=== PATIENT | male | born 1970 | race Caucasian/White ===

== ENCOUNTER 2020-04-18 20:17 | Emergency (ER) | payer BC ==
[~2020-04-18] VITALS: Ht 172.7 cm; Wt 115.7 kg
[~2020-04-18 20:17] MED LIST: IBUP800T26 PO; MTF500T PO; OXYC-272 PO
--- OUTSIDE RECORDS SUMMARY | 2020-04-18 20:22 | XMS REPORT ---
Author Author Alpesh MALAVE Organization [facility] Address [address] [place] [address] Care Team Providers Care House Painting Instructor Name Role Phone SATURNINO MALAVE Unavailable PROBLEMS Type Condition ICD9-CM Code [id number] Code Onset Dates Condition S tatus SNOMED Code Problem Chronic sinusitis, unspecified J32.9 Active [id number] ALLERGIES No Information ENCOUNTERS Encounter Location Date Diagnosis [facility] [address] [address] Dec, Chronic sinusitis, unspecifi ed J32.9 and Other viral agents as the cause of diseases classified elsewhere B97.89 [facility] [address] [address] Aug, Hordeolum externum of right upper eyelid H00.011 and Elevated blood pressure reading R03.0 [facility] [address] [place] [phone] Jul, Hordeolum externum of right lower eyelid H00.012 [facility] [place] [address] [address] Jul, Upper respiratory tract infe ction, unspecified type J06.9 and Cough productive of purulent sputum R05 [facility] [address] [place] [id number] [place] [phone] Nov, Allergic rhinitis J30.9 [facility] [address] [address] Jan, [facility] [address] [place] [id number] [address] [place] [phone] Jan, [facility] [address] [place] [address] [place] [phone] Oct, [facility] [address] [facility] [id number] [address] [place] [phone] Oct, [facility] [address] [facility] [id number] [address] [place] [phone] Sep, [facility] [address] [facility] [id number] [address] [place] [phone] Sep, IMMUNIZATIONS No Known Immunizations SOCIAL HISTORY Never Assessed REASON FOR VISIT PLAN OF CARE VITAL SIGNS Height 68 in 2013-10-16 Weight 256 lbs 2013-10-16 Temperature 97.4 degrees Fahrenheit 2013-10-16 Heart Rate 80 bpm 2013-10-16 Respiratory Rate 20 2013-10-16 Blood pressure systolic 130 mmHg 2013-10-16 Blood pressure diastolic 78 mmHg 2013-10-16 MEDICATIONS No Known Medications RESULTS No Results PROCEDURES Procedure Date Ordered Result Body Site GLYCATED HEMOGLOBIN TEST Oct 16, 2013 INSTRUCTIONS MEDICATIONS ADMINISTERED No Known Medications MEDICAL (GENERAL) HISTORY Type Description Date Medical History Diabetes mellitus without me ntion of complication, type II or unspecified type, uncontrolled Medical History Diabetes mellitus without me ntion of complication, type II or unspecified type, uncontrolled Surgical History shoulder arthroscopy
--- OUTSIDE RECORDS SUMMARY | 2020-04-18 20:23 | XMS REPORT ---
Author Author Alpesh Cole Doctor Organization [facility] Address Unknown Phone Unavailable Care Team Providers Care Heddler Name Role Phone Migration, Doctor Unavailable Unavailable PROBLEMS Type Condition ICD9-CM Code [id number] Code Onset Dates Condition S tatus SNOMED Code Problem Diabetes mellitus without me ntion of complication, type II or unspecified type, uncontrolled 250.02 Active [id number] ALLERGIES No Information ENCOUNTERS Encounter Location Date Diagnosis [facility] [address] [place] [phone] Jul, Upper respiratory tract infe ction, unspecified type J06.9 and Cough productive of purulent sputum R05 [facility] [address] [place] [phone] Nov, Allergic rhinitis J30.9 [facility] [address] [place] [id number] [place] [phone] Jan, [facility] [address] [place] [phone] Jan, [facility] [address] [place] [phone] Oct, [facility] [address] [place] [phone] Oct, [facility] [address] [place] [id number] [place] [phone] Sep, [facility] [address] [place] [phone] Sep, IMMUNIZATIONS No Known Immunizations SOCIAL HISTORY Never Assessed REASON FOR VISIT EMR[facility] PLAN OF CARE VITAL SIGNS MEDICATIONS No Known Medications RESULTS No Results PROCEDURES No Known procedures INSTRUCTIONS MEDICATIONS ADMINISTERED No Known Medications MEDICAL (GENERAL) HISTORY Type Description Date Surgical History shoulder arthroscopy
--- OUTSIDE RECORDS SUMMARY | 2020-04-18 20:23 | XMS REPORT ---
Author Author Alpesh Cole Doctor Organization [facility] Address Unknown Phone Unavailable Care Team Providers Care Manager Behavioral Name Role Phone Migration, Doctor Unavailable Unavailable PROBLEMS Type Condition ICD9-CM Code [id number] Code Onset Dates Condition S tatus SNOMED Code Problem Diabetes mellitus without me ntion of complication, type II or unspecified type, uncontrolled 250.02 Active [id number] ALLERGIES No Information ENCOUNTERS Encounter Location Date Diagnosis [facility] [address] [place] [id number] [place] [phone] Jul, Upper respiratory tract infe ction, unspecified type J06.9 and Cough productive of purulent sputum R05 [facility] [address] [place] [id number] [place] [phone] Nov, Allergic rhinitis J30.9 [facility] [address] [place] [id number] [place] [phone] Jan, [facility] [address] [place] [id number] [place] [phone] Jan, [facility] [address] [place] [id number] [place] [phone] Oct, [facility] [address] [place] [id number] [place] [phone] Oct, [facility] [address] [place] [phone] Sep, [facility] [address] [place] [id number] [place] [phone] Sep, IMMUNIZATIONS No Known Immunizations SOCIAL HISTORY Never Assessed REASON FOR VISIT EMR-[facility] PLAN OF CARE VITAL SIGNS MEDICATIONS Medication Instructions Dosage Frequency Start Date End Date Duration S tatus metformin 500 mg take 1 tablet by Ora l route 2 times per day with morning and evening meals voucher 1st fill only Oct, Active Multi-Day 1 Tablet by Oral route 1 time per day Sep, Active Aspirin 81 mg 1 Tablet by Oral route 1 time per day 2013 Active RESULTS No Results PROCEDURES No Known procedures INSTRUCTIONS MEDICATIONS ADMINISTERED No Known Medications MEDICAL (GENERAL) HISTORY Type Description Date Surgical History shoulder arthroscopy
--- OUTSIDE RECORDS SUMMARY | 2020-04-18 20:23 | XMS REPORT ---
Author Alpesh Flanagan [facility] e[employer] Address Unknown Phone Unavailable Care Team Providers Care Surveyor Geodetic Name Role Phone ARCHIE CORDOVA CP Unavailable Allergies, Adverse Reactions, Alerts Substance Reaction Event Type N.K.D.A. Info Not Available Non Drug Allergy Problems Problem Type Condition Code Onset Dates Condition Statu s Assessment Upper respiratory tract infection, unspecified type J0 6.9 Active Problem Diabetes mellitus without me ntion of complication, type II or unspecified type, uncontrolled 250.02 Active Medications Medication Code System Code Instructions Start Date End Date Status Dosage Multi-Day [facility] [address]-18 Oct 16, 2013 1 T ablet by Oral route 1 time per day Azithromycin [facility] [address]-56 250 MG Orally Once a day JulAug 11, 2016 2 tablets on the first day, then 1 tablet daily for 4 days DayQuil Multi-Symptom NDC 0 no t defined Procedures Procedure Coding System Code Date Office Visit, Est Pt., Level 3 CPT-[address] Vital Signs Date/Time: Aug 06, 2016 Cardiac Monitoring Heart Rate 76 bpm Weight 250 lbs Height 68 in BMI 38.01 Index Blood Pressure Diastolic 76 mmHg Blood Pressure Systolic 110 mmHg Results No Known Results Summary Purpose eClinicalWorks Submission
--- OUTSIDE RECORDS SUMMARY | 2020-04-18 20:23 | XMS REPORT | Continuity of Care Document ---
Author Organization Unknown Address Unknown Phone Unavailable Allergies Active Description Code Type Severity Reaction Onset Reported/Identified Relationship to Patient Clinical Status Yes No Known Drug Allergies [id number] Drug Allergy Unknown N/A 09/04/2013 Medications There is no data. Problems Date Dx Coded Attending Type Code Diagnosis Diagnosed By 10/16/2013 SATURNINO MALAVE APRN 250.02 DIABETES II UNCONTROLLED (UNCOMPLICATED) 10/16/2013 SATURNINO MALAVE APRN 250.02 DIABETES II UNCONTROLLED (UNCOMPLICATED) Procedures Code [place] [address] A1C (IN-HOUSE) 10/16/2013 Results There is no data. Encounters ACCT No. Visit Date/Time Discharge Status Pt. Type Provider Facility Loc./Unit Complaint [id number] 11/13/2013 13:59:00 11/13/2013 23:59: 59 CLS Outpatient SATURNINO MALAVE APRN [id number] 10/16/2013 14:00:00 10/16/2013 23:59: 59 CLS Outpatient SATURNINO MALAVE APRN [id number] 11/16/2013 21:15:00 014 23:27:00 DIS Emergency [id number] 09/10/2013 06:55:00 013 16:55:00 DIS Outpatient [id number] 09/04/2013 10:18:00 013 23:59:59 CLS Outpatient [id number] 07/04/2013 09:54:00 013 23:59:59 CLS Outpatient [id number] 06/28/2013 13:23:00 013 23:59:59 CLS Outpatient [id number] 04/18/2020 20:18:[address] Emergency EASTON BURTON DO [facility] ER DIZZINESS [id number] 12/19/2019 18:00:00 12/19/2019 23:59:5 9 CLS Outpatient JE[facility]
--- OUTSIDE RECORDS SUMMARY | 2020-04-18 20:23 | XMS REPORT ---
Author Author Alpesh MALAVE Organization [facility] Address [address] [place] [address] Care Team Providers Care Rn Ent Name Role Phone SATURNINO MALAVE Unavailable PROBLEMS Type Condition ICD9-CM Code DOA18-PF Code Onset Dates Condition S tatus SNOMED Code Problem Chronic sinusitis, unspecified J32.9 Active [id number] ALLERGIES No Information ENCOUNTERS Encounter Location Date Diagnosis [facility] [address] [address] Dec, Chronic sinusitis, unspecifi ed J32.9 and Other viral agents as the cause of diseases classified elsewhere B97.89 [facility] [address] [place] [phone] Aug, Hordeolum externum of right upper eyelid H00.011 and Elevated blood pressure reading R03.0 [facility] [address] [address] Jul, Hordeolum externum of right lower eyelid H00.012 [facility] [address] [address] Jul, Upper respiratory tract infe ction, unspecified type J06.9 and Cough productive of purulent sputum R05 [facility] [address] [address] Nov, Allergic rhinitis J30.9 [facility] [address] [place] [phone] Jan, [facility] [address] [address] Jan, [address] [address] Oct, [facility] [address] [id number] [place] [address] Oct, [facility] [address] [id number] [place] [address] Sep, [facility] [address] [id number] [place] [address] Sep, IMMUNIZATIONS No Known Immunizations SOCIAL HISTORY Never Assessed REASON FOR VISIT PLAN OF CARE VITAL SIGNS Height 68 in 2013-11-13 Weight 255 lbs 2013-11-13 Temperature 98 degrees Fahrenheit 2013-11-13 Heart Rate 80 bpm 2013-11-13 Respiratory Rate 20 2013-11-13 Blood pressure systolic 128 mmHg 2013-11-13 Blood pressure diastolic 80 mmHg 2013-11-13 MEDICATIONS No Known Medications RESULTS No Results [...]
[2020-04-18 20:43] VITALS: BP_SYST 119; BP_SYST 132; BP_SYST 138; BP_DIAS 83; BP_DIAS 86; BP_DIAS 90
[2020-04-18] MEDS ORDERED: LACTATED RINGERS 1,000 ML IV ONE (20:52)
[2020-04-18] MEDS ORDERED: NS IV 1000 ML 1,000 ML IV SCH (20:53)
[2020-04-18 21:02] LABS: BASOPHILS % (AUTO) 0 % (0-10); EOSINOPHILS # (AUTO) 0.2 10^3/uL (0.0-0.3); EOSINOPHILS % (AUTO) 3 % (0-10); HEMATOCRIT 41 % (40-54); HEMOGLOBIN 14.5 G/DL (13.3-17.7); LYMPHOCYTES # (AUTO) 1.8 X 10^3 (1.0-4.0); LYMPHOCYTES % (AUTO) 33 % (12-44); MEAN CORPUSCULAR HEMOGLOBIN 30 PG (25-34); MEAN CORPUSCULAR HGB CONC 35 G/DL (32-36); MEAN CORPUSCULAR VOLUME 85 FL (80-99); MEAN PLATELET VOLUME 13.4 FL (7.4-10.4); MONOCYTES # (AUTO) 0.4 X 10^3 (0.0-1.0); MONOCYTES % (AUTO) 6 % (0-12); NEUTROPHILS # (AUTO) 3.2 X 10^3 (1.8-7.8); NEUTROPHILS % (AUTO) 58 % (42-75); PLATELET COUNT 151 10^3/uL (130-400); RED CELL DISTRIBUTION WIDTH 13.2 % (10.0-14.5); WHITE BLOOD COUNT 5.6 10^3/uL (4.3-11.0)
[2020-04-18 21:04] LABS: CHLORIDE 102 MMOL/L (98-107); SODIUM 136 MMOL/L (135-145)
[2020-04-18 21:05] LABS: CALCIUM 8.8 MG/DL (8.5-10.1)
[2020-04-18 21:07] LABS: GLUCOSE 395 MG/DL (70-105); TOTAL PROTEIN 6.7 GM/DL (6.4-8.2)
[2020-04-18 21:08] LABS: BILIRUBIN,TOTAL 0.4 MG/DL (0.1-1.0); CARBON DIOXIDE 21 MMOL/L (21-32)
[2020-04-18 21:10] LABS: ALKALINE PHOSPHATASE 80 U/L (40-136)
[2020-04-18 21:11] LABS: CREATININE SERUM 1.05 MG/DL (0.60-1.30); GFR ESTIMATED > 60
[2020-04-18 21:12] LABS: BUN/CREATININE RATIO 16
[2020-04-18 21:13] LABS: ALANINE AMINOTRANSFERASE 37 U/L (0-55); INR 0.9 (0.8-1.4); PROTHROMBIN TIME PATIENT 12.8 SEC (12.2-14.7)
[2020-04-18 21:14] LABS: CREATINE KINASE 209 U/L (30-200)
[2020-04-18 21:17] LABS: BILIRUBIN,URINE NEGATIVE (NEGATIVE); CLARITY,URINE CLEAR; COLOR,URINE YELLOW; GLUCOSE, URINE (UA) 3+ (NEGATIVE); KETONES,URINE TRACE (NEGATIVE); LEUKOCYTE ESTERASE ,URINE NEGATIVE (NEGATIVE); NITRITE,URINE NEGATIVE (NEGATIVE); PH,URINE 5.5 (5-9); PROTEIN,URINE NEGATIVE (NEGATIVE)
[2020-04-18 21:34] LABS: BACTERIA,URINE NEGATIVE /HPF; SQUAMOUS EPITHELIAL CELL,UR 0-2 /HPF
[2020-04-18 21:38] LABS: CREATINE KINASE MB 2.8 NG/ML (<6.6)
[2020-04-18 21:45] LABS: AMPHETAMINE SCREEN, URINE NEGATIVE (NEGATIVE); BARBITURATE SCREEN URINE NEGATIVE (NEGATIVE); BENZODIAZEPINES SCREEN URINE NEGATIVE (NEGATIVE); CANNABINOID SCREEN, URINE NEGATIVE (NEGATIVE); COCAINE SCREEN URINE NEGATIVE (NEGATIVE); METHADONE STAT NEGATIVE (NEGATIVE); METHAMPHETAMINE SCREEN URINE S NEGATIVE (NEGATIVE); OPIATE SCREEN URINE NEGATIVE (NEGATIVE); OXYCODONE STAT NEGATIVE (NEGATIVE); PROPOXYPHENE STAT NEGATIVE (NEGATIVE); TRICYCLIC ANTIDEPRESSANTS SCRE NEGATIVE (NEGATIVE)
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
[2020-04-18 22:28] VITALS: BP 130/74
--- NOTE | 2020-04-19 05:52 | Diagnostic Imaging Report ---
EXAMINATION: CT head without contrast. TECHNIQUE: Multiple contiguous axial images were obtained through the brain without the use of intravenous contrast. All CT scans use one or more of the following dose optimizing techniques: automated exposure control, MA and/or KvP adjustment based on a patient size and exam type, or iterative reconstruction. HISTORY: Dizziness. COMPARISON: 11/16/2013. FINDINGS: No large acute territorial ischemia, mass, or hemorrhage. No midline shift or mass effect. The ventricles, cortical sulci, and basilar cisterns are patent and unremarkable. The orbits are normal. Paranasal sinuses are normal. Mastoid air cells are clear. No soft tissue abnormality is seen. No osseus lesions or fractures are seen. IMPRESSION: 1. No large acute territorial ischemia, mass, or hemorrhage. Agree with overnight report. Dictated by: Dictated on workstation # [id number]
--- NOTE | 2020-04-19 05:52 | Diagnostic Imaging Report ---
EXAMINATION: Chest 2 view HISTORY: Dizziness. COMPARISON: None available. FINDINGS: The lung volumes are normal. No focal consolidation is seen. No large pleural effusion or pneumothorax is seen. The cardiomediastinal silhouette is normal in size and contour. No acute osseous abnormality is seen. IMPRESSION: 1. No acute pleuroparenchymal process. Dictated by: Dictated on workstation # [id number]
== END 2020-04-18 22:28 | disposition home or self-care (01) ==
LOC: EDUNIT# 20:17 → ER 20:18
DX: E11.65 Type 2 diabetes mellitus with hyperglycemia (principal); Z79.84 Long term (current) use of oral hypoglycemic drugs
CPT/HCPCS: 70450; 71046; 80053; 80306; 81000; 82550; 82553; 82962; 83036; 83735; 84484; 85025; 85610; 85730; 93005; 93041; 99284; G0480; 36415; 80320

== ENCOUNTER → 2020-08-14 | Outpatient (CLI) | payer BC | LOC: WOUNDCARE 13:43 | PROVIDERS: ATTEND Surgery | DX: L84 Corns and callosities (principal); E11.42 Type 2 diabetes mellitus with diabetic polyneuropathy; E11.65 Type 2 diabetes mellitus with hyperglycemia; I96 Gangrene, not elsewhere classified | CPT/HCPCS: 99213 ==

== ENCOUNTER → 2020-08-18 | Outpatient (CLI) | payer BC | LOC: WOUNDCARE 10:48 | PROVIDERS: ATTEND Surgery | DX: L84 Corns and callosities (principal); E11.42 Type 2 diabetes mellitus with diabetic polyneuropathy; E11.65 Type 2 diabetes mellitus with hyperglycemia | CPT/HCPCS: 99212 ==

== ENCOUNTER 2021-05-20 14:26 | Emergency (ER) | payer BC ==
[~2021-05-20] VITALS: Ht 172.7 cm; Wt 115.7 kg
--- NOTE | 2021-05-20 15:32 | ED General ---
General Stated Complaint: HEADACHE;COUGH;SINUS Source of Information: Patient Exam Limitations: No Limitations History of Present Illness Date Seen by Provider: May 20, 2021 Time Seen by Provider: 15:28 Initial Comments To ER with reports of headache chest congestion and sinus congestion onset last night. Daughter has Covid. He is a type II diabetic on Invokana. Unvaccinated against Covid. Timing/Duration: 1-2 Days Associated Systoms: Cough Allergies and Home Medications Allergies Coded Allergies: No Known Drug Allergies (Unverified , 09/04/13) Home Medications Ibuprofen 800 Mg Tablet, 800 MG PO q8h PRN for PAIN Prescribed by: COLBY ZARAGOZA on 11/16/13 2311 Metformin Hcl 500 Mg Tablet, 1 EACH PO BID WITH MEALS, (Reported) Patient Home Medication List Home Medication List Reviewed: Yes Review of Systems Review of Systems Constitutional: see HPI; No chills, No fever; malaise EENTM: see HPI, nose congestion Respiratory: see HPI, cough Cardiovascular: no symptoms reported Genitourinary: no symptoms reported Musculoskeletal: no symptoms reported Skin: no symptoms reported Psychiatric/Neurological: No Symptoms Reported Hematologic/Lymphatic: No Symptoms Reported Immunological/Allergic: no symptoms reported Past Hefwual-Wmstdo-Oiuezs Hx Immunizations Up To Date Tetanus Booster (TDap): More than 5yrs Past Medical History Surgeries: Yes (LEFT SHOULDER ROTATOR CUFF REPAIR) Orthopedic Respiratory: No Cardiac: No Neurological: No Genitourinary: No Gastrointestinal: No Musculoskeletal: Yes (LEFT RCR TEAR/REPAIR) Endocrine: Yes (HAS NOT TAKEN MEDICATIONS FOR DIABETES FOR YEARS. ) Diabetes, Non-Insulin dep HEENT: No Cancer: No Psychosocial: No Integumentary: No Blood Disorders: No Physical Exam Vital Signs Vital Signs - First Documented Capillary Refill : Height, Weight, BMI Height: 5'8" Weight: 256lbs. oz. 116.273518kj; 38.00 BMI Method: General Appearance: No Apparent Distress, WD/WN Eyes: Bilateral Eye Normal Inspection, Bilateral Eye PERRL, Bilateral Eye EOMI Neck: Full Range of Motion, Normal Inspection Respiratory: Normal Breath Sounds, No Accessory Muscle Use, No Respiratory Distress Cardiovascular: Normal Peripheral Pulses, Tachycardia (108) Gastrointestinal: Normal Bowel Sounds, Non Tender, Soft Extremity: Normal Capillary Refill, Normal Inspection Neurologic/Psychiatric: Alert, Oriented x3 Progress/Results/Core Measures Suspected Sepsis SIRS Temperature: Pulse: Respiratory Rate: Blood Pressure / Mean: Results/Orders Lab Results Laboratory Tests Test 05/20/21 14:16 Range/Units SARS-CoV-2 RNA (RT-PCR) Detected H Not Detecte My Orders Orders - GENARO CALDERON APRN Covid 19 Inhouse Test (05/20/21 14:35) Influenza A And B By Pcr (05/20/21 14:52) Vital Signs/I&O 05/20/21 05/20/21 14:40 14:40 Temp 36.7 Pulse 108 Resp 20 B/P (MAP) 135/95 (108) Pulse Ox 98 O2 Delivery Room Air Room Air Capillary Refill : Departure Communication (Admissions) I discussed with him the emergency use authorization of Regeneron and the alternatives. He would like to proceed with getting this. Impression Primary Impression: COVID-19 Disposition: 01 HOME, SELF-CARE Condition: Stable Departure-Patient Inst. Decision time for Depature: 15:30 Referrals: GIOVANY GARCÍA (PCP) Primary Care Physician NO,LOCAL PHYSICIAN (Family) Primary Care Physician Patient Instructions: COVID-19 (DC), REGEN-COV (casirivimab and imdevimab) FDA Fact Sheet Add. Discharge Instructions: 1. Scheduling department will call you tomorrow with a time to show up for the Regeneron infusion. Return to ER for any concerns in the meantime. Tylenol and ibuprofen for fevers or body aches. Work/School Note: Work Release Form Date Seen in the Emergency Department: May 20, 2021 Return to Work: May 29, 2021 GENARO CALDERON APRN May 20, 2021 15:32
[2021-05-20 15:40] VITALS: BP 133/105
== END 2021-05-20 15:40 | disposition home or self-care (01) ==
LOC: EDUNIT# 14:26 → ER 14:27
DX: U07.1 COVID-19 (principal); E11.9 Type 2 diabetes mellitus without complications; Z79.84 Long term (current) use of oral hypoglycemic drugs; Z79.899 Other long term (current) drug therapy
CPT/HCPCS: 87636; 99282

== ENCOUNTER → 2021-05-25 | Outpatient (CLI) | payer BC ==
[~2021-05-25] VITALS: Ht 172 cm; Wt 115.9 kg
[~2021-05-25] MED LIST changes: +CASIRIVIMAB/IMDEVIMAB 1,200 MG in NS (IVPB) 250 ML IV ONE; +EPINEPHrine INJECTION 1 MG/ML AMP IM PRN; +diphenhydrAMINE 50 MG/ML INJ (BENADRYL) IV PRN
[2021-05-25 12:19] VITALS: BP 170/83
[2021-05-25 13:14] VITALS: BP 129/82
== END ==
LOC: INFUSION 12:15
PROVIDERS: ATTEND Nurse Practitioner Family
DX: Z23 Encounter for immunization (principal); U07.1 COVID-19